=== PATIENT | male | born 1965 | race African-American/Black ===

== ENCOUNTER 2020-05-26 11:08 | Emergency (ER) | payer BC ==
--- NOTE | 2020-05-26 12:59 | RAD REPORT ---
EXAM DESCRIPTION: RAD - Chest Pa And Lat (2 Views) - 05/26/2020 12:43 pm CLINICAL HISTORY: Cough;Fever Chest pain. COMPARISON: No comparisons FINDINGS: The lungs are clear. The heart is normal in size. No displaced fractures. IMPRESSION: No acute or concerning finding suspected.
--- NOTE | 2020-05-26 13:30 | ER ---
[facility] Age: 54 yrs Sex: Male : 1965 Arrival Date: 05/26/2020 Time: 11:09 Bed 16 Private MD: Diagnosis: Acute bronchitis Presentation: 05/26 11:23 Chief complaint: Patient states: Cough, congestion, nausea, body aches for 3 days. ll1 Coronavirus screen: Client denies travel out of the [place] in the last 14 days. congestion, cough unrelated to allergies, fatigue, Client presents with at least one sign or symptom that may indicate coronavirus-19. Standard/surgical mask placed on the client. Ebola Screen: Patient denies travel to an Ebola-affected area in the 21 days before illness onset. Initial Sepsis Screen: Does the patient meet any 2 criteria? HR > 90 bpm. No. Patient's initial sepsis screen is negative. Does the patient have a suspected source of infection? Yes: Productive cough/pneumonia. Risk Assessment: Do you want to hurt yourself or someone else? Patient reports no desire to harm self or others. Onset of symptoms was May 23, 2020. 11:23 Method Of Arrival: Ambulatory ll1 11:23 Acuity: NAZ 3 ll1 Historical: - Allergies: 11:23 No Known Allergies; ll1 - PMHx: 11:23 None; ll1 - PSHx: 11:23 colon surgery; ll1 - Immunization history:: Flu vaccine is up to date. - Social history:: Smoking status: Patient denies any tobacco usage or history of. Screenin:05 Abuse screen: Denies threats or abuse. Denies injuries from another. Nutritional ca1 screening: No deficits noted. Tuberculosis screening: No symptoms or risk factors identified. Fall Risk None identified. Assessment: 12:05 General: Appears in no apparent distress. comfortable, Behavior is calm, cooperative, ca1 appropriate for age, Reports fever for. Pain: Denies pain. Neuro: Level of Consciousness is awake, alert, obeys commands, Oriented to person, place, time, situation. Cardiovascular: Heart tones S1 S2 present Capillary refill < 3 seconds Patient's skin is warm and dry. Respiratory: Reports cough that is Airway is patent Respiratory effort is even, unlabored, Respiratory pattern is regular, symmetrical, Breath sounds are clear bilaterally. GI: Abdomen is flat, non-distended, Bowel sounds present X 4 quads. Abd is soft and non tender X 4 quads. : No signs and/or symptoms were reported regarding the genitourinary system. EENT: Reports nasal congestion nasal discharge. Derm: Skin is intact, is healthy with good turgor, Skin is pink, warm \T\ dry. Musculoskeletal: Circulation, motion, and sensation intact. Capillary refill < 3 seconds. 12:44 Reassessment: Patient appears in no apparent distress at this time. Patient and/or ca1 family updated on plan of care and expected duration. Pain level reassessed. Patient is alert, oriented x 3, equal unlabored respirations, skin warm/dry/pink. 13:52 Reassessment: Patient appears in no apparent distress at this time. Patient is alert, ca1 oriented x 3, equal unlabored respirations, skin warm/dry/pink. Vital Signs: 11:23 BP 133 / 82; Pulse 96; Resp 18; Temp 100.5; Pulse Ox 97% ; Weight 71.21 kg; Height 5 ll1 ft. 9 in. (175.26 cm); Pain 0/10; 12:46 BP 134 / 91; Pulse 91; Resp 17 S; Temp 99.4(O); Pulse Ox 98% on R/A; ca1 13:52 BP 129 / 89; Pulse 89; Resp 17 S; Pulse Ox 99% on R/A; ca1 11:23 Body Mass Index 23.18 (71.21 kg, 175.26 cm) ll1 ED Course: 11:09 Patient arrived in ED. as 11:22 Arm band placed on. ll1 11:25 Triage completed. ll1 11:50 Jefry Cooper PA is PHCP. cp 11:50 Jefry Coulter MD is Attending Physician. cp 12:00 Bernadette Franz RN is Primary Nurse. ca1 12:05 Patient has correct armband on for positive identification. Placed in gown. Bed in low ca1 position. Call light in reach. Side rails up X 1. Pulse ox on. NIBP on. Warm blanket given. 12:05 No provider procedures requiring assistance completed. Patient did not have IV access ca1 during this emergency room visit. 12:41 XRAY Chest Pa And Lat (2 Views) In Process Unspecified. EDMS Administered Medications: No medications were administered Outcome: 13:30 Discharge ordered by . cp 13:52 Discharged to home ambulatory, with family. ca1 13:52 Condition: stable 13:52 Discharge instructions given to patient, Instructed on discharge instructions, follow up and referral plans. medication usage, Demonstrated understanding of instructions, follow-up care, medications, Prescriptions given X 2. 13:53 Patient left the ED. ca1 Signatures: Dispatcher [employer] EDMS Ritu Solano as Jefry Cooper PA PA cp Acob, Cheryl, RN RN ca1 Teddy Wright RN RN ll1 Corrections: (The following items were deleted from the chart) 12:37 12:05 General: Appears in no apparent distress. comfortable, Behavior is calm, ca1 cooperative, appropriate for age, ca1
--- NOTE | 2020-05-26 13:30 | EDPHYS ---
Physician Documentation [facility] Name: Kristin Jones Age: 54 yrs Sex: Male : 1965 Arrival Date: 05/26/2020 Time: 11:09 Bed 16 Private MD: ED Physician Jefry Coulter HPI: 05/26 12:10 This 54 yrs old Black Male presents to ER via Ambulatory with complaints of Cold cp Symptoms. 12:10 The patient or guardian reports cough, that is intermittent, congestion. Onset: The cp symptoms/episode began/occurred 3 day(s) ago. Associated signs and symptoms: Pertinent positives: fever, nausea, Pertinent negatives: diarrhea, vomiting. Severity of symptoms: in the emergency department the symptoms are unchanged. Historical: - Allergies: 11:23 No Known Allergies; ll1 - PMHx: 11:23 None; ll1 - PSHx: 11:23 colon surgery; ll1 - Immunization history:: Flu vaccine is up to date. - Social history:: Smoking status: Patient denies any tobacco usage or history of. ROS: 12:15 Constitutional: Positive for body aches, fever, Negative for poor PO intake. cp 12:15 Eyes: Negative for injury, pain, redness, and discharge. cp 12:15 ENT: Negative for drainage from ear(s), ear pain, difficulty swallowing, difficulty handling secretions. 12:15 Respiratory: Positive for cough, "sounds productive", Negative for shortness of breath, wheezing. 12:15 Abdomen/GI: Positive for nausea, Negative for abdominal pain, vomiting, diarrhea. 12:15 Neuro: Negative for dizziness, headache, weakness. 12:15 All other systems are negative. Exam: 12:20 Constitutional: The patient appears in no acute distress, alert, awake, non-toxic, well cp developed, well nourished. 12:20 Head/Face: Normocephalic, atraumatic. cp 12:20 Eyes: Periorbital structures: appear normal, Conjunctiva: normal, no exudate, no cp injection, Lids and lashes: appear normal, bilaterally. 12:20 ENT: External ear(s): are unremarkable, Nose: is normal, Mouth: Lips: moist, Oral mucosa: moist, Posterior pharynx: Airway: no evidence of obstruction, patent. 12:20 Neck: ROM/movement: is normal, is supple, without pain, no range of motions limitations, no meningismus. 12:20 Chest/axilla: Inspection: normal. 12:20 Cardiovascular: Rate: normal, Rhythm: regular. 12:20 Respiratory: the patient does not display signs of respiratory distress, Respirations: normal, no use of accessory muscles, no retractions, labored breathing, is not present, Breath sounds: bronchial sounds, that are mild, are heard diffusely, decreased breath sounds, are not appreciated, stridor, is not appreciated, + upper airway congestion. wheezing: is not appreciated. 12:20 Abdomen/GI: Exam negative for discomfort, distension, guarding, Inspection: abdomen appears normal. 12:20 Skin: no rash present. 12:20 Neuro: Orientation: to person, place \\T\\ time. Mentation: is normal. Vital Signs: 11:23 BP 133 / 82; Pulse 96; Resp 18; Temp 100.5; Pulse Ox 97% ; Weight 71.21 kg; Height 5 ll1 ft. 9 in. (175.26 cm); Pain 0/10; 12:46 BP 134 / 91; Pulse 91; Resp 17 S; Temp 99.4(O); Pulse Ox 98% on R/A; ca1 13:52 BP 129 / 89; Pulse 89; Resp 17 S; Pulse Ox 99% on R/A; ca1 11:23 Body Mass Index 23.18 (71.21 kg, 175.26 cm) ll1 MDM: 11:51 Patient medically screened. hunter 13:30 Differential diagnosis: bronchitis, flu, URI, pneumonia, COVID-19. cp 13:30 Data reviewed: vital signs, nurses notes, lab test result(s), radiologic studies, plain cp films. Test interpretation: by ED physician or midlevel provider: chest xray negative for infiltrates. Counseling: I had a detailed discussion with the patient and/or guardian regarding: the historical points, exam findings, and any diagnostic results supporting the discharge/admit diagnosis, lab results, radiology results, to return to the emergency department if symptoms worsen or persist or if there are any questions or concerns that arise at home. 05/26 12:08 Order name: COVID-19 cp 05/26 12:08 Order name: Influenza Screen (a \\T\\ B) cp 05/26 12:08 Order name: XRAY Chest Pa And Lat (2 Views) cp 05/26 12:08 Order name: Strep cp 05/26 13:12 Order name: Throat Culture EDMS Administered Medications: No medications were administered Disposition: 05/26/20 13:30 Discharged to Home. Impression: Acute bronchitis. - Condition is Stable. - Discharge Instructions: Acute Bronchitis, Adult, COVID-19. - Prescriptions for Tessalon Perles 100 mg Oral Capsule - take 2 capsule by ORAL route every 8 hours As needed; 20 capsule. Zithromax Z- Demar 250 mg Oral Tablet - take 1 tablet by ORAL route as directed for 5 days Day 1 - take two (2) tablets one time. Day 2, 3, 4 , 5 take one (1) tablet once daily.; 6 tablet. - Medication Reconciliation Form, Thank You Letter, Antibiotic Education, Prescription Opioid Use, Work release form form. - Follow up: Private Physician; When: 2 - 3 days; Reason: Worsening of condition. - Problem is new. - Symptoms have improved. Addendum: 05/28/2020 11:35 Co-signature as Attending Physician, Jefry Coulter MD I agree with the assessment and c roberto plan of care. Signatures: Dispatcher [employer] EDMS Jefry Coulter MD MD cha Page, Corey, PA PA cp Osei, Bernadette, RN RN ca1 Teddy Wright RN RN ll1 Corrections: (The following items were deleted from the chart) 05/26 13:53 13:30 05/26/2020 13:30 Discharged to Home. Impression: Acute bronchitis. Condition is ca1 Stable. Forms are Medication Reconciliation Form, Thank You Letter, Antibiotic Education, Prescription Opioid Use. Follow up: Private Physician; When: 2 - 3 days; Reason: Worsening of condition. Problem is new. Symptoms have improved. cp 05/27 10:30 10:28 Differential diagnosis: bronchitis, flu, URI, pneumonia, COVID-19 cp cp
[2020-05-26 14:00] VITALS: TEMP 99.4
[2020-05-26 14:02] VITALS: BP 129/89; O2SAT 99
== END 2020-05-26 13:53 | disposition home or self-care (01) ==
LOC: ER 11:08
DX: U07.1 COVID-19 (principal); J20.9 Acute bronchitis, unspecified
CPT/HCPCS: 71046; 87070; 87081; 87804; 99283; U0002